=== PATIENT | female | born 1975 | race African-American/Black ===

== ENCOUNTER 2021-03-29 10:06 | Emergency (ER) | payer SELFPAY ==
--- NOTE | 2021-03-29 10:49 | EDM.PDOC ---
ED HPI GENERAL MEDICAL PROBLEM - General Chief Complaint: General Stated Complaint: LT SIDE PAIN Time Seen by Provider: 03/29/21 10:16 Source of Information: Reports: Patient History Limitations: Reports: No Limitations - History of Present Illness INITIAL COMMENTS - FREE TEXT/NARRATIVE: The patient presents with left side pain. This has been going on for about a week. She has pain to her left low back and left leg. It feels like she is walking no rocks. She has no fever, chills, cough, chest pain, or shortness of breath. She denies abdominal pain, nausea or vomiting. She has no numbness or weakness. She has no bowel or bladder problems. She denies hurting herself. She is diabetic and is out of her metformin and insulin. She mostly takes the metformin. Her blood sugar today was 134. Onset: Gradual Duration: Week(s): (1) Location: Reports: Back, Lower Extremity, Left Quality: Reports: Sharp Severity: Moderate Improves with: Reports: Movement Worsens with: Reports: None Associated Symptoms: Reports: No Other Symptoms Left Pain Score (Numeric/FACES): 10 - Related Data Allergies Allergy/AdvReac Type Severity Reaction Status Date / Time No Known Allergies Allergy Verified 03/29/21 10:22 Home Meds: Home Meds Cyclobenzaprine [Flexeril] 10 mg PO TID PRN #20 tab 03/29/21 [Rx] Insulin Aspart 1 unit SUBCUT QID 03/29/21 [History] metFORMIN [Glucophage XR] 500 mg PO BIDMEALS #60 tab.er 03/29/21 [Rx] metFORMIN [Glucophage XR] 500 mg PO DAILY 03/29/21 [History] ED ROS GENERAL - Review of Systems Review Of Systems: See Below Constitutional: Reports: No Symptoms HEENT: Reports: No Symptoms Respiratory: Reports: No Symptoms Cardiovascular: Reports: No Symptoms Endocrine: Reports: No Symptoms GI/Abdominal: Reports: No Symptoms : Reports: No Symptoms Musculoskeletal: Reports: Back Pain, Leg Pain Skin: Reports: No Symptoms Neurological: Reports: No Symptoms Psychiatric: Reports: No Symptoms ED EXAM, GENERAL - Physical Exam Exam: See Below Exam Limited By: No Limitations General Appearance: Alert, No Apparent Distress Ears: Normal External Exam Nose: Normal Inspection Head: Atraumatic, Normocephalic Neck: Normal Inspection Respiratory/Chest: No Respiratory Distress, Lungs Clear, Normal Breath Sounds Cardiovascular: Regular Rate, Rhythm, No Edema, No Rub GI/Abdominal: Soft, Non-Tender, No Organomegaly Back Exam: Other (Pain upon palpation to the left lower back.) Neurological: Alert, Oriented, No Motor/Sensory Deficits Course - Vital Signs Last Recorded V/S: Last Vital Signs Temp 96.7 F L 03/29/21 10:16 Pulse 99 03/29/21 10:16 Resp 16 03/29/21 10:16 BP 188/123 H 03/29/21 10:16 Pulse Ox 100 03/29/21 10:16 - Orders/Labs/Meds Labs: Laboratory Tests 03/29/21 Range/Units 10:29 POC Glucose 134 H (70-99) mg/dL - Re-Assessments/Exams Free Text/Narrative Re-Assessment/Exam: 03/29/21 10:48 I will get her back on some metformin and some flexeril for her back. Departure - Departure Time of Disposition: 10:50 Disposition: Home, Self-Care 01 Condition: Good Clinical Impression: Diabetes mellitus Qualifiers: Diabetes mellitus type: type 2 Diabetes mellitus intermediate accountant insulin use: without intermediate accountant use Diabetes mellitus complication status: without complication Qualified Code(s): E11.9 - Type 2 diabetes mellitus without complications Low back pain Qualifiers: Chronicity: acute Back pain laterality: left Sciatica presence: with sciatica Sciatica laterality: sciatica of left side Qualified Code(s): M54.42 - Lumbago with sciatica, left side - Discharge Information *PRESCRIPTION DRUG MONITORING PROGRAM REVIEWED*: Not Applicable *COPY OF PRESCRIPTION DRUG MONITORING REPORT IN PATIENT MIRIAM: Not Applicable Prescriptions: Cyclobenzaprine [Flexeril] 10 mg PO TID PRN #20 tab PRN Reason: Pain metFORMIN [Glucophage XR] 500 mg PO BIDMEALS #60 tab.er Referrals: PCP,None [Primary Care Provider] - Leah Gutierrez MD [Physician] - 1 Week Forms: ED Department Discharge, ED Return to Work/School Form Additional Instructions: Take the metformin 2 times per day with meals. Drink plenty of water. Take motrin or aleve for pain. If that does not help try the flexeril every 8 hours. Please return if you are worse. Follow up with Dr Buck in our clinic or another provider in town. Sepsis Event Note (ED) - Evaluation Sepsis Screening Result: No Definite Risk - Focused Exam Vital Signs: Vital Signs Temp Pulse Resp BP Pulse Ox 03/29/21 10:16 96.7 F L 99 16 188/123 H 100
== END 2021-03-29 11:07 | disposition home or self-care (01) ==
LOC: JD.ED 10:06
DX: M54.42 Lumbago with sciatica, left side (principal); E11.9 Type 2 diabetes mellitus without complications; Z79.4 Long term (current) use of insulin
CPT/HCPCS: 82947; 99283

== ENCOUNTER 2021-05-31 08:08 | Emergency (ER) | payer SELFPAY ==
[2021-05-31] MEDS ORDERED: Orphenadrine 100 MG Tab.ER PO ONE (08:46)
== END 2021-05-31 12:10 | disposition left against medical advice (07) ==
LOC: JD.ED 08:08
DX: M54.50 Low back pain, unspecified (principal); E11.9 Type 2 diabetes mellitus without complications; Z79.84 Long term (current) use of oral hypoglycemic drugs
CPT/HCPCS: 72100; 99283; A9270

== ENCOUNTER 2021-05-31 19:04 | Emergency (ER) | payer SELFPAY ==
[2021-05-31] MEDS ORDERED: Cyclobenzaprine 10 MG Tab PO ONE (20:19)
[2021-05-31] MEDS ORDERED: Ketorolac 15 MG/ML SDV IM ONE (20:19)
== END 2021-05-31 21:13 | disposition home or self-care (01) ==
LOC: JD.ED 19:04
DX: M54.42 Lumbago with sciatica, left side (principal); E11.9 Type 2 diabetes mellitus without complications; Z79.84 Long term (current) use of oral hypoglycemic drugs; Z72.0 Tobacco use
CPT/HCPCS: 96372; 99283; A9270; J1885